=== PATIENT | female | born 1955 | race Caucasian/White ===

== ENCOUNTER 2016-11-15 12:30 | Inpatient (IN) | payer BC ==
[2016-11-26] MEDS ORDERED: Bupivacaine HCl 0.5%/Epinephrine 1:200,000/PF 30 ml Vial ONE (12:25)
[2016-11-26] MEDS ORDERED: Sodium Chloride 0.9% 100 ML ONE (12:47)
[2016-11-26] MEDS ORDERED: Ketorolac Tromethamine 30 MG/ML VIAL ONE (12:47)
[2016-11-26] MEDS ORDERED: Scopolamine 1.5 mg/72 hour Patch ONE (12:48)
[2016-11-26] MEDS ORDERED: Lidocaine 1% w/Epinephrine 1:200K 30 ML VIAL ONE (12:50)
[2016-11-26] MEDS ORDERED: Midazolam HCl 2 mg/2 ml Vial ONE (13:02)
[2016-11-26] MEDS ORDERED: Fentanyl 100 MCG/2 ML VIAL ONE (13:02)
[2016-11-26] MEDS ORDERED: Dexamethasone 4 mg/ml Vial ONE (13:03)
[2016-11-26] MEDS ORDERED: Lidocaine 1% PF 5 ML VIAL ONE (13:36)
[2016-11-26] MEDS ORDERED: Glycopyrrolate 0.2 MG/ML 5 ML SYRINGE ONE (13:36)
[2016-11-26] MEDS ORDERED: PHENYLEPHRINE-NS 100 MCG/ML 10 ML SYRINGE ONE (13:36)
[2016-11-26] MEDS ORDERED: Dexamethasone 20 MG/5 ML VIAL ONE (13:36)
[2016-11-26] MEDS ORDERED: Propofol 200 MG/20 ML VIAL ONE (13:36)
[2016-11-26] MEDS ORDERED: Ondansetron HCl/PF 4 MG/2 ML Vial ONE (13:36)
[2016-11-26] MEDS ORDERED: Propofol 500 MG/50 ML VIAL ONE (13:43)
[2016-11-26] MEDS ORDERED: Ondansetron HCl/PF 4 MG/2 ML Vial IVP PRN ×2 (16:49→18:14)
[2016-11-26] MEDS ORDERED: Meperidine HCl/PF 25 MG/ML VIAL SLOW IVP PRN (16:49)
[2016-11-26] MEDS ORDERED: Promethazine HCl 25 MG/ML VIAL SLOW IVP PRN (16:49)
[2016-11-26] MEDS ORDERED: Promethazine HCl 25 MG/ML VIAL IM PRN ×2 (16:49→18:14)
[2016-11-26] MEDS ORDERED: Morphine Sulfate 2 MG/ML SYRINGE SLOW IVP PRN (18:14)
[2016-11-26] MEDS: D5 1/2 NS w/20 mEq KCL 1,000 ML IV SCH (18:44)
[2016-11-26] MEDS: Enoxaparin Sodium 40 MG/0.4 ML SYRINGE SC SCH (20:20)
[2016-11-26] MEDS: Famotidine/PF 20 mg/2ml Vial SLOW IVP SCH (20:20)
[2016-11-26] MEDS: Famotidine 20 MG TAB PO SCH (20:21)
[2016-11-26] MEDS: Acetaminophen 1,000 MG in Premix Bag 1 BAG IVPB SCH (23:37)
[2016-11-26] MEDS: Ketorolac Tromethamine 30 MG/ML VIAL IVP SCH (23:37)
[2016-11-27] MEDS: D5 1/2 NS w/20 mEq KCL 1,000 ML IV SCH ×3 (03:26→11:38)
[2016-11-27 06:04] LABS: #Lymphocytes 0.5 thou/uL (1.20-3.40); #Monocytes 0.1 thou/uL (0.11-0.59); #Neutrophils 6.9 thou/uL (1.40-6.50); %Basophils 0.2 % (0.0-1.0); %Monocytes 1.7 % (0.0-10.0); Hematocrit 41.1 % (36.0-47.0); Mean Platelet Volume 8.5 fL (7.4-10.4); Red Blood Cell (RBC) Count 4.28 mill/uL (4.20-5.40); White Blood Cell (WBC) Count 7.6 thou/uL (4.8-10.8)
[2016-11-27] MEDS: Ketorolac Tromethamine 30 MG/ML VIAL IVP SCH ×4 (06:16→23:22)
[2016-11-27] MEDS: Acetaminophen 1,000 MG in Premix Bag 1 BAG IVPB SCH ×3 (06:19→17:40)
[2016-11-27 06:26] LABS: Anion Gap 12 mmol/L (10-20); BUN (Urea Nitrogen) 10 mg/dL (9.8-20.1); Calc. Creatinine Clearance 93 mL/min (70-130); Calcium 8.9 mg/dL (7.8-10.44); Carbon Dioxide 23 mmol/L (22-29); Chloride 107 mmol/L (98-107); Estimated GFR-MDRD 66
[2016-11-27] MEDS: Famotidine/PF 20 mg/2ml Vial SLOW IVP SCH ×2 (08:41→20:27)
[2016-11-27] MEDS: Famotidine 20 MG TAB PO SCH ×2 (08:41→20:26)
[2016-11-27] MEDS ORDERED: FLU VACC QS2017-18 36 mo. & older 0.5 ML SYRINGE IM ONE (09:00)
[2016-11-27] MEDS ORDERED: SUMAtriptan Succinate 50 MG TAB PO PRN (14:21)
[2016-11-27] MEDS ORDERED: HYDROcodone/Acetaminophen 7.5/325 mg Tablet PO PRN ×2 (17:02)
[2016-11-27] MEDS: Enoxaparin Sodium 40 MG/0.4 ML SYRINGE SC SCH (20:27)
[2016-11-28 05:18] VITALS: TEMP 97.6
[2016-11-28] MEDS: D5 1/2 NS w/20 mEq KCL 1,000 ML IV SCH (06:11)
[2016-11-28] MEDS: Ketorolac Tromethamine 30 MG/ML VIAL IVP SCH (06:12)
[2016-11-28 07:58] VITALS: BP 129/54
[2016-11-28] MEDS: Famotidine 20 MG TAB PO SCH (09:20)
[2016-11-28] MEDS: Famotidine/PF 20 mg/2ml Vial SLOW IVP SCH (09:20)
--- NOTE | 2016-11-29 14:35 | OP ---
DATE OF CONSULTATION: 11/26/2016 PREOPERATIVE DIAGNOSIS: Sigmoid colon diverticulosis/diverticulitis. POSTOPERATIVE DIAGNOSIS: Sigmoid colon diverticulosis/diverticulitis. OPERATION PERRFORMED: Laparoscopic sigmoid colectomy with low pelvic-stapled anastomosis, splenic f lexure mobilization. SURGEON: Dr. Nathaniel Hart. ANESTHESIA: General endotracheal. INDICATIONS: The patient is a 61-year-old white female. She has had multiple episodes of diverticu litis over the recent years. She is taken to the operating room at this time for elective laparosco pic sigmoid colectomy. OPERATIVE PROCEDURE IN DETAIL: Informed consent was obtained. The patient was taken to the operati ng room where general endotracheal anesthesia was obtained with the patient in supine position. Abd omen was prepped with ChloraPrep after she was placed in the dorsal lithotomy. Local anesthetic was infiltrated and 5 mm supraumbilical incision was created through which a Veress needle was passed i nto the peritoneal cavity and pneumoperitoneum established using carbon dioxide up to a pressure of 15 mmHg. A 5 mm trocar port was passed through this same incision. Laparoscopic camera was passed through this port. Under direct vision, a 12 mm right lower quadrant port was placed as well as an 8 cm extraction site incision in the left lower quadrant. Muscle splitting was used to gain access into the abdomen and the Felipe wound retractor was placed followed by the GelPort. Finally, a 5 mm port was placed in the far lateral left abdomen. Attention was turned first to the descending colon, which was mobilized along the white line of Told t. Dissection was then carried down to the sigmoid colon, which was fairly densely adherent to the lateral abdominal wall. This was taken down sharply using the LigaSure device. An area of dense di verticulitis was identified. The mobilization continued down below the sacral promontory, mobilizin g the distal sigmoid colon in the proximal rectum. There appeared to be a size discrepancy and I de cided to divide at the level of the upper rectum to provide for appropriate anastomotic caliber. The colon was mobilized lateral to medial and I carefully identified the left ureter and kept this f ree from harm. A site was selected at the upper rectum and it was cleared of its mesentery and divi ded at this level using a single fire of the blue load using the Wade Hampton stapler. The mesentery was then taken down in an ascending fashion using the LigaSure device. Because of the extensive divert icular disease within her colon, I elected to fully mobilize the splenic flexure in order to bring a segment of the mid descending colon down for an anastomosis. After the splenic flexure was fully m obilized, a segment of colon was identified which easily reached the stapled upper rectum and the se gment was marked. The colon was then brought out through the extraction site. An enterotomy was cr eated in the colon at the appropriate location and it was incised with the EEA sizers. A 31 mm EEA stapler was selected and the anvil was passed through the enterotomy and brought out antimesenteric several centimeters proximally. The colon was then divided with a final firing of the Wade Hampton stapl er, so as to exclude the enterotomy in continuity with the sigmoid colon that was resected. The col on was passed off the field. All instruments and gloves were changed after the colon was passed off the field. The anvil was wiped down with Betadine and the specimen was passed back into the abdomi nal cavity. From below, the EEA sizers were passed up to the staple line and subsequently the 31 mm stapler was brought up to the staple line and the spike advanced appropriately. The two segments of colon were anastomosed by firing the stapler. The doughnuts were inspected and found to be of excellent qualit y. The anastomosis was inspected for integrity by insufflating the air while the anastomosis was un neil water. The area was thoroughly irrigated. All irrigant was aspirated. All ports and instruments were felicita ben under direct vision. The fascial defect at the right lower quadrant incision was closed with 0 Vicryl suture using a GraNee needle. Prior to closing, new gowns and gloves were exchanged and closing tray was utilized for closure. Th e fascia at the left lower quadrant site was closed in two layers using running suture of #1 PDS. T he wound was then thoroughly irrigated with 2 liters of irrigant. The remainder of the wound was cl osed with 3-0 and 4-0 Monocryl and Dermabond was placed externally. The other port sites were close d with 4-0 Monocryl subcuticular suture and Dermabond was again placed. There were no complications . Blood loss was negligible. She was taken to the recovery room in stable condition.
== END 2016-11-28 11:00 | disposition home or self-care (01) | DRG 331 ==
LOC: SURG A 11-26 11:58 → EDSTATUS 11-26 12:30 → SURG A 11-26 17:55
PROVIDERS: ADMIT Specialist; ATTEND Specialist
PROC: 0DBN0ZZ Excision of Sigmoid Colon, Open Approach (ICD-10-PCS; principal; 2016-11-26)
PROC: 3E0T3BZ Introduction of Anesthetic Agent into Peripheral Nerves and Plexi, Percutaneous Approach (ICD-10-PCS; 2016-11-26)
DX: K57.32 Diverticulitis of large intestine without perforation or abscess without bleeding (principal); Z23 Encounter for immunization
CPT/HCPCS: 36415; 36416; 80048; 85025; 88307; 90471; 90682; G0008; J0131; J0670; J0694; J1100; J1170; J1650; J1885; J2001; J2250; J2405; J2704; J3010; J7050; Q2036; S0028

== ENCOUNTER 2017-09-18 11:43 | Outpatient (CLI) | payer BC | END 2017-09-18 11:44 | disposition home or self-care (01) | LOC: BICMAMMO 11:43 | PROVIDERS: ATTEND Obstetrics & Gynecology | DX: Z12.31 Encounter for screening mammogram for malignant neoplasm of breast (principal) | CPT/HCPCS: 77063; 77067 ==

== ENCOUNTER 2021-07-18 07:32 | Outpatient (CLI) | payer MEDICARE, BC | END 2021-07-18 07:33 | disposition home or self-care (01) | LOC: BICCT 07:32 | PROVIDERS: ATTEND Otolaryngology | DX: R59.9 Enlarged lymph nodes, unspecified (principal); K11.20 Sialoadenitis, unspecified; J35.8 Other chronic diseases of tonsils and adenoids | CPT/HCPCS: 70491; 82565 ==

== ENCOUNTER → 2021-12-19 | Day surgery (SDC) | payer MEDICARE, BC ==
[~2021-12-19] MED LIST: Lidocaine 2% PF 5 ML VIAL ONE; Sodium Bicarbonate 2.5 MEQ/5 ML VIAL ONE
== END | disposition home or self-care (01) ==
LOC: ULT 13:06
PROVIDERS: ATTEND Otolaryngology
DX: K11.20 Sialoadenitis, unspecified (principal); Z53.9 Procedure and treatment not carried out, unspecified reason; Z79.899 Other long term (current) drug therapy; Z88.5 Allergy status to narcotic agent
CPT/HCPCS: J2001

== ENCOUNTER 2022-12-10 14:45 | Outpatient (CLI) | payer MEDICARE, BC | END 2022-12-10 14:46 | disposition home or self-care (01) | LOC: BICMAMMO 14:45 | PROVIDERS: ATTEND Internal Medicine | DX: Z12.31 Encounter for screening mammogram for malignant neoplasm of breast (principal) | CPT/HCPCS: 77063; 77067 ==